=== PATIENT | female | born 2000 | race American Indian/Alaskan Native ===

== ENCOUNTER 2021-08-30 22:12 | Emergency (ER) | payer OTHER ==
[2021-08-31 00:28] VITALS: BP 135/80
[2021-08-31] MEDS ORDERED: LIDOCAINE-MPF (1%) 10 MG/1 ML VIAL 5 ML INFILTRATI ONE ×2 (01:37→02:35)
[2021-08-31] MEDS ORDERED: HYDROcodone/ACETAMINOPHEN 5-325 MG TAB PO ONE ×2 (01:37→02:35)
[2021-08-31] MEDS ORDERED: IBUPROFEN 600 MG TAB PO ONE (01:37)
[2021-08-31] MEDS ORDERED: ONDANSETRON 4 MG ODT TAB PO ONE ×2 (01:37→02:35)
[2021-08-31] MEDS ORDERED: TETANUS,DIPH,PERTUSS(ACELL) VACCINE 0.5 ML SYRINGE IM ONE ×2 (01:38→02:35)
--- NOTE | 2021-08-31 02:07 | Emergency Department Report ---
ED Animal Bite HPI - General Chief Complaint: Animal Bite Stated Complaint: DOG BITE TO RIGHT HAND Source: patient Mode of arrival: Ambulatory Limitations: No Limitations - History of Present Illness Initial Comments: Patient is a nulliparous 20-year-old -[place] female with no past medical history who presents to the ED with complaint of acute onset persistent right hand pain with swelling due to multiple puncture wounds from dog bite about 4 hours ago. Patient states that the dog that bit her right hand belonged to her uncle and that the dog attacked her as she came down the stairs. The patient states that this is noted for some she was meeting the dog but the dog decided to jump on her immediately she saw her. Patient states that the dog is fully vaccinated. Patient however states that she is not up-to-date with all her tetanus vaccinations. Patient denies numbness and tingling or weakness of right hand, dizziness, syncope, nausea and vomiting, fall, fever and chills or headache. MD Complaint: animal bite (dorsal right hand puncture wounds from dog bites), animal-related injury (dog bite to the dorsal right hand) -: Sudden, hour(s) (4) Location: other (dorsal right hand puncture wounds) Right: Hand (dorsal right hand puncture wounds) Animal: dog Animal Control Notified: No Description: household pet, immunizations UTD Mechanism: bite, contact with mucous membr Pain Description: sharp, constant Severity scale (0 -10): 7 Context: unprovoked Associated Symptoms: bleeding. denies: erythema, discharge from wound, fever, chills, rash, loss of consciousness, cough, headache, diaphoresis, shortness of breath - Related Data Patient Tetanus UTD: No (Given booster tetanus vaccination) Previous Rx's Medication Instructions Recorded Last Taken Type Amoxicillin/Potassium Clav 1 each PO Q12H #20 tab 08/31/21 Unknown Rx [Augmentin 875-125 Tablet] Ibuprofen [Motrin] 800 mg PO Q8HR PRN #30 tablet 08/31/21 Unknown Rx Allergies Allergy/AdvReac Type Severity Reaction Status Date / Time No Known Allergies Allergy Verified 08/31/21 02:19 ED Review of Systems ROS: Stated complaint: DOG BITE TO RIGHT HAND Other details as noted in HPI Constitutional: denies: chills, fever Eyes: denies: eye pain, eye discharge, vision change ENT: denies: ear pain, throat pain Respiratory: denies: cough, shortness of breath, wheezing Cardiovascular: denies: chest pain, palpitations Endocrine: no symptoms reported Gastrointestinal: denies: abdominal pain, nausea, vomiting, diarrhea Genitourinary: denies: urgency, dysuria, discharge Musculoskeletal: joint swelling (right hand swelling), arthralgia (small puncture wounds on dorsal right hand). denies: back pain Skin: other (Bleeding dorsal right hand pain due to puncture wounds from dog bites). denies: rash, lesions Neurological: denies: headache, weakness, paresthesias Psychiatric: denies: anxiety, depression Hematological/Lymphatic: denies: easy bleeding, easy bruising ED Past Medical Hx - Past Medical History Previous Medical History?: No - Surgical History Past Surgical History?: No - Social History Smoking Status: Never Smoker Substance Use Type: None - Medications Home Medications: Home Medications Medication Instructions Recorded Confirmed Last Taken Type Amoxicillin/Potassium Clav 1 each PO Q12H #20 tab 08/31/21 Unknown Rx [Augmentin 875-125 Tablet] Ibuprofen [Motrin] 800 mg PO Q8HR PRN #30 tablet 08/31/21 Unknown Rx ED Physical Exam - General Limitations: No Limitations General appearance: alert, in no apparent distress - Head Head exam: Present: atraumatic, normocephalic, normal inspection - Eye Eye exam: Present: normal appearance, PERRL, EOMI Pupils: Present: normal accommodation - ENT ENT exam: Present: normal exam, normal orophraynx, mucous membranes moist, TM's normal bilaterally, normal external ear exam - Neck Neck exam: Present: normal inspection, full ROM. Absent: tenderness - Respiratory Respiratory exam: Present: normal lung sounds bilaterally. Absent: respiratory distress, wheezes, rhonchi, stridor, chest wall tenderness, accessory muscle use, decreased breath sounds, prolonged expiratory - Cardiovascular Cardiovascular Exam: Present: regular rate, normal rhythm, normal heart sounds. Absent: systolic murmur, diastolic murmur, rubs, gallop - GI/Abdominal GI/Abdominal exam: Present: soft, normal bowel sounds. Absent: tenderness, guarding, rebound, hyperactive bowel sounds, hypoactive bowel sounds, organomegaly, mass, bruit - Extremities Exam Extremities exam: Present: normal inspection, full ROM, tenderness (Palpable dorsal right hand tenderness with mild swelling due to small puncture wounds from dog bites), normal capillary refill, joint swelling (dorsal right hand swelling). Absent: pedal edema, calf tenderness - Back Exam Back exam: Present: normal inspection, full ROM. Absent: tenderness, CVA tenderness (R), CVA tenderness (L), muscle spasm, paraspinal tenderness, vertebral tenderness, rash noted - Neurological Exam Neurological exam: Present: alert, oriented X3, CN II-XII intact, normal gait, reflexes normal - Psychiatric Psychiatric exam: Present: normal affect, normal mood - Skin Skin exam: Present: warm, dry, intact, normal color, other (Small puncture wounds on dorsal right hand due to small puncture wounds). Absent: rash ED Course Vital Signs 08/31/21 00:14 Temperature 98.3 F Pulse Rate 70 Respiratory 18 Rate Blood Pressure 135/80 O2 Sat by Pulse 99 Oximetry - Laceration /Wound Repair Right Dorsal Hand Wound Location: upper extremity (Dorsal right hand laceration) Wound Length (cm): 4 Wound's Depth, Shape: superficial, irregular Wound Explored: contaminated Irrigated w/ Saline (ccs): 300 Betadine Prep?: Yes Anesthesia: 1% Lidocaine Volume Anesthetic (ccs): 5 Wound Debrided: extensive Wound Repaired With: sutures Suture Size/Type: 4:0, proline Number of Sutures: 5 Sterile Dressing Applied?: Yes Progress: The wounds were cleaned with normal saline and 1% lidocaine solution used as a nesthetic. When anesthesia was fully achieved, the wounds were sutured per protocol using Prolene 4 sutures for a total of 5 sutures. Patient tolerated procedure well. The wound was then cleaned and dressed With 4 x 4 gauzes and Kerlix. Patient tolerated procedure well and was discharged home on pain medication and prophylactic antibiotics. Patient advised return to the ED in 12 to 14 days for suture removal or return to the ED immediately if symptoms get worse. Critical care attestation.: If time is entered above; I have spent that time in minutes in the direct care of this critically ill patient, excluding procedure time. ED Disposition Clinical Impression: Puncture wound of right hand without complication Qualifiers: Encounter type: initial encounter Qualified Code(s): S61.431A - Puncture wound without foreign body of right hand, initial encounter Dog bite of right hand without complication Qualifiers: Encounter type: initial encounter Qualified Code(s): S61.451A - Open bite of right hand, initial encounter Disposition: 01 HOME / SELF CARE / HOMELESS Is pt being admited?: No Does the pt Need Aspirin: No Condition: Stable Instructions: Animal Bite, Adult, [id number], Puncture Wound, [id number], Sutured Wound Care, [id number] Additional Instructions: Take medication with food, drink plenty of fluids and follow-up with the primary care physician in 7 to 10 days for reevaluation and follow-up. Return to the ED immediately if symptoms get worse. Prescriptions: Amoxicillin/Potassium Clav [Augmentin 875-125 Tablet] 1 each PO Q12H #20 tab Ibuprofen [Motrin] 800 mg PO Q8HR PRN #30 tablet PRN Reason: Pain , Severe (7-10) Referrals: [facility] [Provider Group] - 3-5 Days Forms: Work/School Release Form(ED) Time of Disposition: 02:18 Print Language: BENGALI
--- NOTE | 2021-08-31 02:08 | XRay Report ---
RIGHT HAND 3 VIEW(S) INDICATION / CLINICAL INFORMATION: Animal bite - puncture wounds COMPARISON: None available. FINDINGS: BONES / JOINT(S): No acute fracture or subluxation. No significant arthritis. SOFT TISSUES: No significant abnormality. ADDITIONAL FINDINGS: None. Signer Name: Johnnie Alex DO Signed: 08/31/2021 2:04 AM Workstation Name: [id number]
[2021-08-31] MEDS: IBUPROFEN 600 MG TAB PO ONE (02:39)
== END 2021-08-31 03:53 | disposition home or self-care (01) ==
LOC: ED 22:12
DX: S61.431A Puncture wound without foreign body of right hand, initial encounter (principal); S61.451A Open bite of right hand, initial encounter; X58.XXXA Exposure to other specified factors, initial encounter; Y93.89 Activity, other specified; Y92.89 Other specified places as the place of occurrence of the external cause; Y99.8 Other external cause status
CPT/HCPCS: 12002; 73130; 90471; 90715; 99283; J3490; 96372; Q0162

== ENCOUNTER 2021-09-03 21:54 | Emergency (ER) | payer OTHER ==
[2021-09-03 22:11] VITALS: BP 127/70
--- NOTE | 2021-09-04 06:34 | Emergency Department Report ---
ED Upper Extremity Inj HPI - General Chief Complaint: Extremity Problem,Nontraumatic Stated Complaint: STITCHES Source: patient Mode of arrival: Ambulatory Limitations: No Limitations - History of Present Illness Initial Comments: In-year-old female who presents for infected suture sites. Patient states sutures 3 days ago for dog bite to hand. Patient was DC'd with prescription for Augmentin clear patient taking medication as prescribed. We will remove sutures. Perform wound care reeducate on wound care continue Augmentin as directed. Dog did not have rabies this was domestic dog. Animal control was involved. Patient denies other complaints MD Complaint: Injury to:: right - Related Data Previous Rx's Medication Instructions Recorded Last Taken Type Amoxicillin/Potassium Clav 1 each PO Q12H #20 tab 08/31/21 Unknown Rx [Augmentin 875-125 Tablet] Ibuprofen [Motrin] 800 mg PO Q8HR PRN #30 tablet 08/31/21 Unknown Rx Allergies Allergy/AdvReac Type Severity Reaction Status Date / Time No Known Allergies Allergy Verified 08/31/21 02:19 ED Review of Systems ROS: Stated complaint: STITCHES Other details as noted in HPI Constitutional: denies: chills, fever Eyes: denies: eye pain, eye discharge, vision change ENT: denies: ear pain, throat pain Respiratory: denies: cough, shortness of breath, wheezing Cardiovascular: denies: chest pain, palpitations Endocrine: no symptoms reported Gastrointestinal: denies: abdominal pain, nausea, diarrhea Genitourinary: denies: urgency, dysuria, discharge Musculoskeletal: as per HPI Skin: other (Infected suture site right hand) Neurological: denies: headache, weakness, paresthesias Psychiatric: denies: anxiety, depression Hematological/Lymphatic: denies: easy bleeding, easy bruising ED Past Medical Hx - Social History Smoking Status: Never Smoker Substance Use Type: None - Medications Home Medications: Home Medications Medication Instructions Recorded Confirmed Last Taken Type Amoxicillin/Potassium Clav 1 each PO Q12H #20 tab 08/31/21 Unknown Rx [Augmentin 875-125 Tablet] Ibuprofen [Motrin] 800 mg PO Q8HR PRN #30 tablet 08/31/21 Unknown Rx ED Physical Exam - General Limitations: No Limitations General appearance: alert, in no apparent distress - Head Head exam: Present: atraumatic, normocephalic - Eye Eye exam: Present: normal appearance - ENT ENT exam: Present: mucous membranes moist - Neck Neck exam: Present: normal inspection - Respiratory Respiratory exam: Present: normal lung sounds bilaterally. Absent: respiratory distress - Cardiovascular Cardiovascular Exam: Present: regular rate, normal rhythm. Absent: systolic murmur, diastolic murmur, rubs, gallop - GI/Abdominal GI/Abdominal exam: Present: soft, normal bowel sounds - Rectal Rectal exam: Present: deferred - Extremities Exam Extremities exam: Present: normal inspection, full ROM, other (Mild erythema at the suture sites range of motion is intact distal pulses intact there is no nerve muscle or tendon damage. HEALTHCARE CONSULTANT less than 3 seconds distal pulses are intact.) - Back Exam Back exam: Present: normal inspection - Neurological Exam Neurological exam: Present: alert, oriented X3, reflexes normal. Absent: motor sensory deficit - Expanded Neurological Exam Expanded Patient oriented to: Present: person, place, time Motor strength exam: RUE: 5, LUE: 5 Best Eye Response ([place]): (4) open spontaneously Best Motor Response ([place]): (6) obeys commands Best Verbal Response ([place]): (5) oriented Jt Total: 15 - Psychiatric Psychiatric exam: Present: normal affect, normal mood - Skin Skin exam: Present: warm, dry, erythema (Puncture site mild erythema mild purulent drainage nonfluctuant) ED Course Vital Signs 09/03/21 22:10 Temperature 98.4 F Pulse Rate 105 H Respiratory 16 Rate Blood Pressure 127/70 [Right] O2 Sat by Pulse 99 Oximetry - Procedure Description Procedures done: Sutures removed x2 intact. Manually explored stress scan purulent drainage. Plan continue Augmentin complaint soap and water continue dressing changes Neosporin. Follow-up with primary care doctor in 2 to 3 days or return to emergency department should symptoms worsen patient verbalized agreement and understanding of discharge plan patient DC'd in stable condition at this time. ED Medical Decision Making - Medical Decision Making Sutures removed intact see procedure note. Treatment plan reviewed with patient patient verbalized agreement and understanding of same. Patient will continue Augmentin as prescribed. Follow-up primary care in 2 days for wound check return to ED should symptoms worsen. There is no fevers no chills no rigors. Distal pulses are intact range of motion is intact glassware maker are equal HEALTHCARE CONSULTANT is less than 3 seconds. Critical care attestation.: If time is entered above; I have spent that time in minutes in the direct care of this critically ill patient, excluding procedure time. ED Disposition Clinical Impression: Infection involving suture with abscess Disposition: 01 HOME / SELF CARE / HOMELESS Is pt being admited?: No Does the pt Need Aspirin: No Condition: Stable Instructions: Wound Infection Additional Instructions: Take medications as prescribed, wash with soap and water daily. Dressing as directed. Follow-up with your doctor in 2 days for wound check. Return to emergency department should symptoms worsen. Referrals: WHITLEY MENSAH MD [Primary Care Provider] - 2-3 Days Forms: Work/School Release Form(ED) Time of Disposition: 06:37
== END 2021-09-04 06:47 | disposition home or self-care (01) ==
LOC: ED 21:54
DX: L02.511 Cutaneous abscess of right hand (principal); Z79.899 Other long term (current) drug therapy
CPT/HCPCS: 99282